=== PATIENT | male | born 1960 | race Caucasian/White ===

== ENCOUNTER → 2017-02-22 | Outpatient (CLI) | payer OTHER ==
[~2017-02-22] MED LIST: RT-ALBUTEROL SULF 2.5 MG/3 ML PRE-MIX VIAL IH ONE
== END ==
LOC: RT 12:31
PROVIDERS: ATTEND General Practice
DX: Z02.71 Encounter for disability determination (principal); I50.9 Heart failure, unspecified
CPT/HCPCS: 94060; 94621